=== PATIENT | female | born 1955 | race Caucasian/White ===

== ENCOUNTER 2016-07-26 07:13 | Emergency (ER) | payer MEDICARE, MEDICAID ==
--- NOTE | 2016-07-26 12:15 | ER ---
ADMIT: 07/26/2016 RM/LOC: ER [facility] MR#: [id number] [id number] ANGELLA CHERRY [address] [place] [address] Emergency Room Report SEX: F AGE: 61 : 1955 DATE: 07/26/2016 This 61-year-old female who comes to the Emergency Department with 30 days worth of abdominal pain for which she has seen her primary care physician multiple times. Had a CT scan of the abdomen and pelvis for the same pain on the 17 of July, which she told us she had it done last week but found the most recent was 17 July, results of which were reviewed said possible mild diverticulitis. She just finished her Cipro and Flagyl yesterday. DIAGNOSIS: Abdominal pain. She is instructed to follow up with her primary doctor this Thursday and inquire about colonoscopy. Vivek Escobar MD/ cindil JOB #: [id number] CC: Vivek Escobar MD, Attending Physician
== END 2016-07-26 09:30 | disposition home or self-care (01) ==
LOC: ER 07:13
DX: R10.9 Unspecified abdominal pain (principal); I10 Essential (primary) hypertension; E11.9 Type 2 diabetes mellitus without complications; F17.200 Nicotine dependence, unspecified, uncomplicated; Z88.2 Allergy status to sulfonamides; Z88.5 Allergy status to narcotic agent; Z88.1 Allergy status to other antibiotic agents; Z79.899 Other long term (current) drug therapy; Z79.84 Long term (current) use of oral hypoglycemic drugs

== ENCOUNTER → 2016-08-08 | Outpatient (CLI) | payer MEDICARE, MEDICAID | END | disposition home or self-care (01) | LOC: RAD.S 13:10 | DX: R92.1 Mammographic calcification found on diagnostic imaging of breast (principal) ==

== ENCOUNTER → 2016-08-19 | Outpatient (CLI) | payer MEDICARE, MEDICAID | END | disposition home or self-care (01) | LOC: RAD.S 09:44 | PROC: 0HBU3ZX Excision of Left Breast, Percutaneous Approach, Diagnostic (ICD-10-PCS; principal; 2016-08-19) | DX: R92.1 Mammographic calcification found on diagnostic imaging of breast (principal) ==